=== PATIENT | male | born 1960 | race Two or more races ===

== ENCOUNTER 2018-05-07 14:48 | Emergency (ER) | payer SELFPAY ==
[2018-05-07 18:07] VITALS: BP 133/78
--- NOTE | 2018-05-08 06:33 | ED ---
Influenza-Like Illness - HPI Summary HPI Summary: Patient is a 58-year-old male from [place] with flu like symptoms of cough, fever x 2 days, and muscle aches. He states the symptoms have begun to improve. 2 others in the home have also had tested positive for the flu. He denies fevers today. Otherwise healthy, takes no medications. - History of Current Complaint Chief Complaint: EDGeneral Time Seen by Provider: 05/07/18 14:50 Hx Obtained From: Family/Drapery Cutter - also his animal laboratory technician, Mixing Technician Onset/Duration: Sudden Onset Severity: Moderate Associated Signs & Symptoms: T Max - 101, F/C, Myalgia Related Hx: Possible Flu/Infectious Exposure - Allergy/Home Medications Allergies/Adverse Reactions: Allergies Allergy/AdvReac Type Severity Reaction Status Date / Time No Known Allergies Allergy Verified 05/07/18 15:09 PMH/Surg Hx/FS Hx/Imm Hx Previously Healthy: Yes - Immunization History Hx Pertussis Vaccination: No Immunizations Up to Date: Unable to Obtain/Confirm Infectious Disease History: No Infectious Disease History: Reports: Traveled Outside the [place] in Last 30 Days - Social History Occupation: Employed Full-time Lives: With Family Alcohol Use: Occasionally Hx Substance Use: No Substance Use Type: Reports: None Hx Tobacco Use: No Smoking Status (MU): Never Smoked Tobacco Review of Systems Positive: Fever. Negative: Chills, Fatigue, Skin Diaphoresis Negative: Photophobia, Blurred Vision Negative: Sore Throat, Nasal Discharge Negative: Palpitations, Chest Pain Positive: Cough. Negative: Shortness Of Breath Positive: Myalgia Skin: Negative Positive: Headache All Other Systems Reviewed And Are Negative: Yes Physical Exam Triage Information Reviewed: Yes Vital Signs On Initial Exam: Initial Vitals Temp Pulse Resp BP Pulse Ox 98.3 F 78 16 143/116 97 05/07/18 15:07 05/07/18 15:07 05/07/18 15:07 05/07/18 15:07 05/07/18 15:07 Vital Signs Reviewed: Yes Appearance: Positive: Well-Appearing, Well-Nourished Skin: Positive: Warm, Skin Color Reflects Adequate Perfusion Head/Face: Positive: Normal Head/Face Inspection Neck: Positive: Supple, No Lymphadenopathy Respiratory/Lung Sounds: Positive: Clear to Auscultation, Breath Sounds Present Cardiovascular: Positive: RRR, Pulses are Symmetrical in both Upper and Lower Extremities Musculoskeletal: Positive: Strength/ROM Intact Neurological: Positive: Speech Normal Psychiatric: Positive: Normal, Affect/Mood Appropriate AVPU Assessment: Alert Diagnostics - Vital Signs Vital Signs Temp Pulse Resp BP Pulse Ox 05/07/18 18:05 97.8 F 88 18 133/78 98 05/07/18 15:07 98.3 F 78 16 143/116 97 - Laboratory Lab Results: Lab Results 05/07/18 Range/Units 15:42 Influenza A (Rapid) Positive A (Negative) Influenza B (Rapid) Negative (Negative) Lab Statement: Any lab studies that have been ordered have been reviewed, and results considered in the medical decision making process. Flu Symptom Course/Dx - Course Course Of Treatment: On physical exam, patient is tested for flu. Denies cough or fever today. Lungs CTA, RRR. Influenza A positive. He is treated with Tamiflu. - Diagnoses Differential Diagnosis/HQI/PQRI: Positive: Influenza Provider Diagnoses: Influenza A Discharge - Sign-Out/Discharge Documenting (check all that apply): Discharge/Admit/Transfer - Discharge Plan Condition: Stable Disposition: HOME Prescriptions: Oseltamivir CAP* [Tamiflu CAP*] 75 mg PO BID #10 cap Referrals: No Primary Care Phys,NOPCP [Primary Care Provider] - Additional Instructions: Tamiflu twice daily x 5 days Keep mouth covered when cough Wash hands frequently - Billing Disposition and Condition Condition: STABLE Disposition: Home
== END 2018-05-07 18:05 | disposition home or self-care (01) ==
LOC: ED 14:48
DX: J10.1 Influenza due to other identified influenza virus with other respiratory manifestations (principal); R50.9 Fever, unspecified; R05 Cough; R51 Headache
CPT/HCPCS: 99282